=== PATIENT | female | born 1965 | race Caucasian/White ===

== ENCOUNTER 2018-02-07 19:50 | Emergency (ER) | payer OTHER ==
--- NOTE | 2018-02-07 20:09 | ER Document Report ---
ED Medical Screen (RME) - General Chief Complaint: Psych Problem Stated Complaint: PSYCH EVAL Time Seen by Provider: 02/07/18 19:58 Notes: RAPID MEDICAL EVALUATION DISCLOSURE I have seen this patient as part of a Rapid Medical Evaluation and, if applicable, placed any initially appropriate orders. The patient will be seen and fully evaluated, including a full history and physical exam, by a provider ( in Main ED or Fast Track) when a room becomes available. 53F here w who states that she has been suicidal over the past few days. She got into an argument with her son on Tuesday and later that night told the that she was going to kill herself as soon as he left the house. He then called out sick from work and did not leave the house but the next day ended up leaving because he cannot take it anymore having to deal with her. She then left the house after packing her bags and picking up "cigarettes and booze" then went to a hotel. She would not respond to his messages so he came in contact with law enforcement who spoke with her and now they are here because she has voiced to the and the "I cannot go on living like this". TRAVEL OUTSIDE OF THE [place] IN LAST 30 DAYS: No - Related Data Allergies/Adverse Reactions: iodine [Iodine] Allergy (Intermediate, Verified 09/03/15 14:08) rash Iodinated Contrast- Oral and IV Dye [IV Dye, Iodine Containing] Allergy ( Verified 09/03/15 14:08) gabapentin [From Neurontin] Adverse Reaction (Verified 05/04/16 13:20) BLACK OUT bees Allergy (Severe, Uncoded 09/03/15 14:08) Anaphylaxis Past Medical History - Past Medical History Cardiac Medical History: Reports: Hx Hypercholesterolemia, Hx Pulmonary Embolism Denies: Hx Heart Attack, Hx Hypertension Pulmonary Medical History: Denies: Hx Asthma Neurological Medical History: Reports: Hx Migraine, Hx Seizures - as infant GI Medical History: Reports: Hx Gastroesophageal Reflux Disease. Denies: Hx Hiatal Hernia Musculoskeltal Medical History: Denies Hx Arthritis Psychiatric Medical History: Reports: Hx Anxiety, Hx Depression - No prior suicide attempt, multiple suicidal threats in the past Past Surgical History: Reports: Hx Abdominal Surgery - gastric bypass, Hx Section, Hx Cholecystectomy, Hx Hysterectomy - 2004, Hx Orthopedic Surgery - carpal tunnel, Hx Tonsillectomy. Denies: Hx Mastectomy - Immunizations Hx Diphtheria, Pertussis, Tetanus Vaccination: Yes Physical Exam - Vital signs Vitals: Temp Pulse Resp BP Pulse Ox 98.9 F 110 H 20 143/58 H 100 02/07/18 19:56 02/07/18 19:56 02/07/18 19:56 02/07/18 19:56 02/07/18 19:56 Course - Vital Signs Vital signs: Temp Pulse Resp BP Pulse Ox 98.9 F 110 H 20 143/58 H 100 02/07/18 19:56 02/07/18 19:56 02/07/18 19:56 02/07/18 19:56 02/07/18 19:56
--- NOTE | 2018-02-07 20:34 | EKG REPORT ---
SEVERITY:- ABNORMAL ECG - SINUS TACHYCARDIA PROBABLE INFERIOR INFARCT, AGE INDETERMINATE : Confirmed by: Willy Cunningham MD 07-Feb-2018 20:33:31
[2018-02-07 21:20] LABS: ABSOLUTE BASOPHILS # (AUTO) 0.1 10^3/uL (0.0-0.2); ABSOLUTE LYMPHOCYTES (AUTO) 1.8 10^3/uL (0.5-4.7); ABSOLUTE MONOCYTES (AUTO) 0.7 10^3/uL (0.1-1.4); ABSOLUTE NEUT (AUTO) 6.4 10^3/uL (1.7-8.2); EOSINOPHILS % (AUTO) 0.5 % (0-6); HEMATOCRIT 43.3 % (36.0-47.0); HEMOGLOBIN 14.5 g/dL (12.0-15.5); LYMPHOCYTES % (AUTO) 19.8 % (13-45); MEAN CORPUSCULAR HEMOGLOBIN 34.8 pg (27.0-33.4); MEAN CORPUSCULAR HGB CONC 33.5 g/dL (32.0-36.0); MEAN CORPUSCULAR VOLUME 104 fl (80-97); MONOCYTES % (AUTO) 7.5 % (3-13); PLATELET COUNT 250 10^3/uL (150-450); RED BLOOD COUNT 4.17 10^6/uL (3.72-5.28); SEGMENTED NEUTROPHILS % (AUTO) 71.2 % (42-78); TOTAL CELLS COUNTED % (AUTO) 100 %; WHITE BLOOD COUNT 8.9 10^3/uL (4.0-10.5)
--- NOTE | 2018-02-07 21:26 | ER Document Report ---
ED General - General Chief Complaint: Psych Problem Stated Complaint: PSYCH EVAL Time Seen by Provider: 02/07/18 19:58 Mode of Arrival: Ambulatory Information source: Patient, Relative Notes: 53-year-old female with depression, rheumatoid arthritis presents from home voluntarily for psychiatric evaluation. Patient states that 2 days prior to arrival she and her got into an argument which led her to leave the house and stay at a hotel. She states that she was upset that he forgot their 35th wedding anniversary. is at the bedside and states that the patient repeatedly threatened to kill herself during their fight. reports that the patient texted him pictures of cigarettes and alcohol and stated "it is beginning". He took that as the patient was beginning to take pills. She has had a prior suicide attempt on August 21, 2016 where she overdosed with narcotic medication and was resuscitated by her . He reports that the patient has stated she is in a "dark place". Patient is currently denying suicidal ideation, she states that she does not recall saying any of this. did call the completions engineer's office who recommended going to the [employer] which he did. Resonate gave the patient 2 options which were, voluntarily or that she would be petition. Patient does admit to increased stress with her mother being recently ill. She is currently complaining of a headache. She denies any intentional overdose, alcohol use. Patient is currently on Prozac, Xanax and trazodone. TRAVEL OUTSIDE OF THE [place] IN LAST 30 DAYS: No - HPI Onset: Yesterday Quality of pain: Achy Severity: Mild Associated symptoms: Headache Exacerbated by: Denies Relieved by: Denies Similar symptoms previously: Yes Recently seen / treated by doctor: No - Related Data Allergies/Adverse Reactions: iodine [Iodine] Allergy (Intermediate, Verified 09/03/15 14:08) rash Iodinated Contrast- Oral and IV Dye [IV Dye, Iodine Containing] Allergy ( Verified 09/03/15 14:08) gabapentin [From Neurontin] Adverse Reaction (Verified 05/04/16 13:20) BLACK OUT bees Allergy (Severe, Uncoded 09/03/15 14:08) Anaphylaxis Past Medical History - General Information source: Patient, Relative - Social History Smoking Status: Current Every Day Smoker Frequency of alcohol use: Occasional Drug Abuse: Prescription drugs Lives with: Spouse/Significant other Family History: CAD, Other - Substance abuse Patient has suicidal ideation: Yes Patient has homicidal ideation: No - Past Medical History Cardiac Medical History: Reports: Hx Hypercholesterolemia, Hx Pulmonary Embolism Denies: Hx Heart Attack, Hx Hypertension Pulmonary Medical History: Denies: Hx Asthma Neurological Medical History: Reports: Hx Migraine, Hx Seizures - as infant Renal/ Medical History: Denies: Hx Peritoneal Dialysis GI Medical History: Reports: Hx Gastroesophageal Reflux Disease. Denies: Hx Hiatal Hernia Musculoskeltal Medical History: Denies Hx Arthritis Psychiatric Medical History: Reports: Hx Anxiety, Hx Depression - No prior suicide attempt, multiple suicidal threats in the past Past Surgical History: Reports: Hx Abdominal Surgery - gastric bypass, Hx Section, Hx Cholecystectomy, Hx Hysterectomy - 2004, Hx Orthopedic Surgery - carpal tunnel, Hx Tonsillectomy. Denies: Hx Mastectomy - Immunizations Hx Diphtheria, Pertussis, Tetanus Vaccination: Yes Review of Systems - Review of Systems Constitutional: denies: Fever, Weakness EENT: denies: Blurred vision Cardiovascular: denies: Chest pain, Lightheaded Respiratory: denies: Cough, Short of breath Gastrointestinal: denies: Abdominal pain, Nausea Genitourinary: denies: Dysuria Female Genitourinary: No symptoms reported Musculoskeletal: denies: Leg swelling Skin: denies: Rash Hematologic/Lymphatic: No symptoms reported Neurological/Psychological: Depression, Anxiety, Headaches, Suicidal ideation. denies: Hallucinations Physical Exam - Vital signs Vitals: Temp Pulse Resp BP Pulse Ox 98.9 F 110 H 20 143/58 H 100 02/07/18 19:56 02/07/18 19:56 02/07/18 19:56 02/07/18 19:56 02/07/18 19:56 Interpretation: Normal, Hypertensive, Tachycardic - Notes Notes: PHYSICAL EXAMINATION: GENERAL: Well-appearing, well-nourished and in no acute distress. HEAD: Atraumatic, normocephalic. EYES: Pupils equal round and reactive to light, extraocular movements intact, conjunctiva are normal. ENT: Nares patent, oropharynx clear without exudates. Moist mucous membranes. NECK: Normal range of motion, supple without lymphadenopathy LUNGS: Breath sounds clear to auscultation bilaterally and equal. No wheezes rales or rhonchi. HEART: Regular rate and rhythm without murmurs ABDOMEN: Soft, nontender, nondistended abdomen. No guarding, no rebound. No masses appreciated. Female : deferred Musculoskeletal: Normal range of motion, no pitting or edema. No cyanosis. NEUROLOGICAL: Cranial nerves grossly intact. Normal speech, normal gait. Normal sensory, motor exams PSYCH: Denies SI/HI. Admits to depression. SKIN: Warm, Dry, normal turgor, no rashes or lesions noted. Course - Re-evaluation Re-evalutation: Laboratory 02/07/18 02/07/18 20:40 20:40 WBC 8.9 RBC 4.17 Hgb 14.5 Hct 43.3 MCV 104 H MCH 34.8 H MCHC 33.5 RDW 14.0 Plt Count 250 Seg Neutrophils % 71.2 Lymphocytes % 19.8 Monocytes % 7.5 Eosinophils % 0.5 Basophils % 1.0 Absolute Neutrophils 6.4 Absolute Lymphocytes 1.8 Absolute Monocytes 0.7 Absolute Eosinophils 0.0 Absolute Basophils 0.1 Sodium 135.7 L Potassium 4.3 Chloride 102 Carbon Dioxide 22 Anion Gap 12 BUN 10 Creatinine 0.76 Est GFR ( Amer) > 60 Est GFR (Non-Af Amer) > 60 Glucose 101 Calcium 9.6 Total Bilirubin 0.6 Direct Bilirubin 0.4 Neonat Total Bilirubin Not Reportable Neonat Direct Bilirubin Not Reportable Neonat Indirect Bili Not Reportable AST 42 H ALT 37 Alkaline Phosphatase 100 Total Protein 7.3 Albumin 4.2 Salicylates < 1.0 L Acetaminophen < 10 L Serum Alcohol < 10 02/07/18 22:58 53-year-old female with depression, rheumatoid arthritis presents from home voluntarily for psychiatric evaluation. Patient states that 2 days prior to arrival she and her got into an argument which led her to leave the house and stay at a hotel. She states that she was upset that he forgot their 35th wedding anniversary. is at the bedside and states that the patient repeatedly threatened to kill herself during their fight. reports that the patient texted him pictures of cigarettes and alcohol and stated "it is beginning". He took that as the patient was beginning to take pills. She has had a prior suicide attempt on August 21, 2016 where she overdosed with narcotic medication and was resuscitated by her . He reports that the patient has stated she is in a "dark place". Patient is currently denying suicidal ideation, she states that she does not recall saying any of this. did call the completions engineer's office who recommended going to the bead trimmer which he did. [employer] gave the patient 2 options which were, voluntarily or that she would be petition. Patient does admit to increased stress with her mother being recently ill. She is currently complaining of a headache. She denies any intentional overdose, alcohol use. Patient is currently on Prozac, Xanax and trazodone. Upon arrival vitals reviewed and within normal limits. Patient does not appear toxic or dehydrated. She is in no acute distress. She has been cooperative and states she is willing to stay for psychiatric evaluation. Patient did receive Tylenol for her headache but states this usually does not work. She then received Imitrex and Benadryl. Patient medically cleared for psychiatric evaluation. - Vital Signs Vital signs: Temp Pulse Resp BP Pulse Ox 98.9 F 110 H 20 143/58 H 100 02/07/18 19:56 02/07/18 19:56 02/07/18 19:56 02/07/18 19:56 02/07/18 19:56 - Laboratory Result Diagrams: 02/07/18 20:40 02/07/18 20:40 Laboratory results interpreted by me: 02/07/18 02/07/18 20:40 20:40 MCV 104 H MCH 34.8 H Sodium 135.7 L AST 42 H Salicylates < 1.0 L Acetaminophen < 10 L Discharge - Discharge Referrals: BEN MONTALVO FNP [Primary Care Provider] - Follow up as needed
[2018-02-07 21:27] LABS: ALANINE AMINOTRANSFERASE 37 U/L (9-52); ALBUMIN 4.2 g/dL (3.5-5.0); ALKALINE PHOSPHATASE 100 U/L (38-126); ANION GAP 12 (5-19); ASPARTATE AMINO TRANSFERASE 42 U/L (14-36); BILIRUBIN,DIRECT 0.4 mg/dL (0.0-0.4); BILIRUBIN,TOTAL 0.6 mg/dL (0.2-1.3); BLOOD UREA NITROGEN 10 mg/dL (7-20); CALCIUM 9.6 mg/dL (8.4-10.2); CARBON DIOXIDE 22 mmol/L (22-30); CHLORIDE 102 mmol/L (98-107); GLUCOSE 101 mg/dL (75-110); POTASSIUM 4.3 mmol/L (3.6-5.0); SODIUM 135.7 mmol/L (137-145); TOTAL PROTEIN 7.3 g/dL (6.3-8.2)
[2018-02-07 21:29] LABS: ACETAMINOPHEN < 10 ug/mL (10-30); ALCOHOL < 10 mg/dL (NONE DETECTED); SALICYLATE < 1.0 mg/dL (2.0-20.0)
[2018-02-07] MEDS ORDERED: ACETAMINOPHEN 325 MG TABLET PO ONE (22:41)
[2018-02-07] MEDS ORDERED: SUMATRIPTAN SUCCINATE 25 MG TABLET PO ONE (22:55)
[2018-02-07] MEDS ORDERED: DIPHENHYDRAMINE HCL 50 MG CAPSULE PO ONE (22:55)
[2018-02-07] MEDS ORDERED: IMIPRAMINE HCL 25 MG TABLET ONE (23:10)
[2018-02-07] MEDS ORDERED: SUMATRIPTAN SUCCINATE 25 MG TABLET ONE (23:25)
[2018-02-08 05:47] LABS: APPEARANCE,URINE CLEAR; BILIRUBIN,URINE NEGATIVE (NEGATIVE); COLOR,URINE YELLOW; GLUCOSE, URINE NEGATIVE (NEGATIVE); KETONES,URINE NEGATIVE (NEGATIVE); LEUKOCYTE ESTERASE,URINE SMALL (NEGATIVE); NITRITE,URINE NEGATIVE (NEGATIVE); PROTEIN,URINE NEGATIVE (NEGATIVE); URINE SPECIFIC GRAVITY 1.005; UROBILINOGEN,URINE NEGATIVE mg/dL (<2.0)
[2018-02-08 05:57] LABS: URINE AMPHETAMINES SCREEN NEGATIVE; URINE BARBITURATES SCREEN NEGATIVE; URINE BENZODIAZEPINES SCREEN UNCONFIRMED POSITIVE; URINE COCAINE SCREEN NEGATIVE; URINE MARIJUANA (THC) SCREEN NEGATIVE; URINE METHADONE SCREEN NEGATIVE; URINE PHENCYCLIDINE SCREEN NEGATIVE
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
[2018-02-08] MEDS ORDERED: TRAMADOL HCL 50 MG TABLET PO ONE (14:31)
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
[2018-02-08] MEDS ORDERED: SUMATRIPTAN SUCCINATE INJ/PF 6 MG/0.5 ML SDV SUBCUT ONE (18:10)
[2018-02-08] MEDS ORDERED: BENZTROPINE MESYLATE 1 MG TABLET PO SCH (18:15)
[2018-02-08] MEDS ORDERED: APIXABAN 2.5 MG TABLET PO SCH (18:15)
[2018-02-08] MEDS ORDERED: OLANZAPINE 5 MG TABLET PO SCH (18:15)
[2018-02-08] MEDS ORDERED: TRAZODONE HCL 50 MG TABLET PO ONE (23:09)
[2018-02-09 08:50] VITALS: BP 114/73
[2018-02-09] MEDS ORDERED: TRAZODONE HCL 50 MG TABLET PO SCH (18:00)
--- NOTE | 2018-02-12 12:10 | PSYCHOLOGICAL NOTE ---
Psych Note - Psych Note Psych Note: Reason for consult: Consent permissions: Shweta Herron, PRIYA Pallavi, sister, 53-year-old female with depression, rheumatoid arthritis presents from home voluntarily for psychiatric evaluation. Patient states that 2 days prior to arrival she and her got into an argument which led her to leave the house and stay at a hotel. She states that she was upset that he forgot their 35th wedding anniversary. is at the bedside and states that the patient repeatedly threatened to kill herself during their fight. reports that the patient texted him pictures of cigarettes and alcohol and stated "it is beginning". He took that as the patient was beginning to take pills. Clinician conducted checking with patient to discuss transportation to [facility]. Patient confirms she would like to call her update him on her upcoming transport. She has no further questions at this time. Medication recommendations per [facility]'s contracted psychiatrist Dr. Cary MD are as follows 1. Zyprexa 5mg twice daily 2. 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 Patient was accepted to [facility] last night; transportation will occur today. Dr. Portillo was consulted and the care management this patient; attending physician is in agreement with recommendations and disposition
== END 2018-02-09 09:00 ==
LOC: ER 19:50
DX: R45.851 Suicidal ideations (principal); F32.9 Major depressive disorder, single episode, unspecified; F11.99 Opioid use, unspecified with unspecified opioid-induced disorder; F13.99 Sedative, hypnotic or anxiolytic use, unspecified with unspecified sedative, hypnotic or anxiolytic-induced disorder; F17.210 Nicotine dependence, cigarettes, uncomplicated; E78.00 Pure hypercholesterolemia, unspecified; Z86.711 Personal history of pulmonary embolism; Z98.84 Bariatric surgery status; Z90.49 Acquired absence of other specified parts of digestive tract; Z79.02 Long term (current) use of antithrombotics/antiplatelets
CPT/HCPCS: 93005; 99285; 96372; 36415; 87086; 80307 ×4; 85025; 87088; 80053; 81001; 93010; J3030; J3490

== ENCOUNTER → 2018-08-30 | Outpatient (CLI) | payer OTHER ==
--- NOTE | 2018-08-30 14:47 | RADIOLOGY REPORT (SQ) ---
EXAM DESCRIPTION: BARIUM SWALLOW ESOPHAGUS COMPLETED DATE/TIME: 08/30/2018 8:48 am REASON FOR STUDY: DYSPHAGIA R13.12 DYSPHAGIA, OROPHARYNGEAL PHASE COMPARISON: None. TECHNIQUE: Under fluoroscopic guidance, patient ingested thick and thin barium. Fluoroscopic spot im ages and routine radiographic images acquired and stored on PACS. 12 MM BARIUM TABLET GIVEN: No LIMITATIONS: None. FLUOROSCOPY TIME: 3.6 minutes 14 images saved to PACS. FINDINGS: NEUROMUSCULAR COORDINATION OF SWALLOW: Normal. No aspiration. ESOPHAGEAL MOTILITY: There is significant esophageal dysmotility, especially while in the supine posi tion. Moderate tertiary contractions of the distal esophagus are seen. ESOPHAGEAL MUCOSA: Normal mucosa without masses or ulceration. GASTRO-ESOPHAGEAL JUNCTION: Surgical changes consistent with gastric bypass. A small sliding hiatal hernia is identified. No definite reflux. NON-GI TRACT STRUCTURES: No significant finding. OTHER: No other significant finding. IMPRESSION: SIGNIFICANT ESOPHAGEAL DYSMOTILITY WITH MODERATE TERTIARY CONTRACTIONS IN DISTAL ESOPHAG US. SMALL SLIDING HIATAL HERNIA. COMMENT: NONE Quality ID 145: Final reports for procedures using fluoroscopy that document radiation exposure tara shai, or exposure time and number of fluorographic images (if radiation exposure indices are not avail able) TECHNICAL DOCUMENTATION: JOB ID: [id number] [employer]- All Rights Reserved Reading location - IP/workstation name: [email or web address] [id number]
== END ==
LOC: RAD 08:04
PROVIDERS: ATTEND Nurse Practitioner
DX: K22.4 Dyskinesia of esophagus (principal); K44.9 Diaphragmatic hernia without obstruction or gangrene; R13.12 Dysphagia, oropharyngeal phase
CPT/HCPCS: 74220

== ENCOUNTER 2019-03-08 06:40 | Day surgery (SDC) | payer OTHER ==
[~2019-03-08 06:40] MED LIST: TETRACAINE HCL 0.5% OPH SOLN 4 ML ONE
[2019-03-08] MEDS: TETRACAINE HCL 0.5% OPH SOLN 4 ML OS PRN ×4 (07:02→07:34)
[2019-03-08] MEDS: CYCLOPENTOLATE 0.2%/PHENYLEPHRINE 1% OPH SOLN 2 ML OS PRN ×3 (07:03→07:25)
[2019-03-08] MEDS: BESIFLOXACIN HCL 0.6% OPH SUSP 5 ML BOTTLE OS PRN ×3 (07:03→07:51)
[2019-03-08] MEDS: TROPICAMIDE 1% OPH SOLN 3 ML OS PRN ×3 (07:03→07:25)
[2019-03-08] MEDS ORDERED: EPINEPHRINE INJ/PF 1 MG/1 ML AMPULE ONE (07:13)
[2019-03-08] MEDS ORDERED: LIDOCAINE 1%/PHENYLEPHRINE 1.5% 1 ML VIAL ONE (07:13)
[2019-03-08] MEDS ORDERED: CHONDR SU A NA/HYALUR INTRAOC KIT (SURGICARE) ONE (07:14)
[2019-03-08] MEDS ORDERED: FENTANYL CITRATE INJ/PF 100 MCG/2 ML AMPUL ONE (07:22)
[2019-03-08] MEDS ORDERED: MIDAZOLAM 2 MG/2 ML INJ ONE (07:22)
[2019-03-08] MEDS ORDERED: KETOROLAC TROMETHAMINE 0.45% 4 DROP/0.4 ML DROPERETTE OS PRN (08:00)
--- NOTE | 2019-03-08 17:14 | [facility] OPERATIVE REPORT E ---
[facility] Operative Report NAME: MIA ONEIL AGE: 54Y DATE OF SURGERY: 03/08/2019 ROOM: PREOPERATIVE DIAGNOSIS: CATARACT, LEFT EYE. POSTOPERATIVE DIAGNOSIS: CATARACT, LEFT EYE. OPERATION: Cataract extraction with insertion of an IOL of the left eye. SURGEON: PASCUAL CHANDLER M.D. ANESTHESIA: Topical. PROCEDURE: After obtaining appropriate consent, the patient's left eye was prepped and draped in sterile fashion as well as the surgeon in a sterile manner and cataract surgery was started. First a paracentesis blade was used to make a side-port incision. Viscoelastic was used to inflate the anterior chamber. Next a 2.4 mm incision was made with a 2.4 mm blade, clear corneal temporally. A continuous capsulorrhexis was made using a cystotome and Utrata forceps. Following this hydrodissection was carried out to make the lens fully loose and mobile and it was rotated 90 degrees. Following this, a frveix-pml-jthotiv technique was used to phacoemulsify the lens with a CDE of 3.22. The remaining cortex was removed with irrigation/aspiration. Provisc was instilled into the capsular bag to inflate the bag. A SN60WF, 20.5 diopter lens was placed. The remaining viscoelastic material was removed with irrigation/aspiration. Following this, the incision was found to be watertight. Besivance was instilled into the eye and a protective shield was placed over the eye. The patient returned to the postoperative recovery in stable condition. DICTATING PHYSICIAN: PASCUAL CHANDLER M.D. [id number] PHY#: [id number] ID: [id number] JOB#: [id number] ACCT: [id number] cc:PASCUAL CHANDLER M.D. >
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
[2019-03-09] MEDS ORDERED: DORZOLAMIDE HCL 2%/TIMOLOL MALEAT 0.5% OPH SOLN 10 ML OS PRN (05:00)
== END 2019-03-08 08:41 | disposition home or self-care (01) ==
LOC: SC 06:40
PROVIDERS: ATTEND Internal Medicine
PROC: 08RK3JZ Replacement of Left Lens with Synthetic Substitute, Percutaneous Approach (ICD-10-PCS; principal; 2019-03-08 07:45)
DX: H25.12 Age-related nuclear cataract, left eye (principal); E78.00 Pure hypercholesterolemia, unspecified; K58.9 Irritable bowel syndrome, unspecified; J45.909 Unspecified asthma, uncomplicated; F32.9 Major depressive disorder, single episode, unspecified; M06.9 Rheumatoid arthritis, unspecified; Z86.711 Personal history of pulmonary embolism; Z79.01 Long term (current) use of anticoagulants; Z87.891 Personal history of nicotine dependence; Z91.041 Radiographic dye allergy status; Z91.038 Other insect allergy status; Z79.899 Other long term (current) drug therapy
CPT/HCPCS: 00142; 66984; V2632; J2250; J3490 ×2; J0171; J3010; J2370; 142

== ENCOUNTER 2019-04-05 08:32 | Day surgery (SDC) | payer OTHER ==
[~2019-04-05 08:32] MED LIST changes: +CHONDR SU A NA/HYALUR INTRAOC KIT (SURGICARE) ONE; +DORZOLAMIDE HCL 2%/TIMOLOL MALEAT 0.5% OPH SOLN 10 ML OD PRN; +EPINEPHRINE INJ/PF 1 MG/1 ML AMPULE ONE; +KETOROLAC TROMETHAMINE 0.45% 4 DROP/0.4 ML DROPERETTE OD PRN; +LIDOCAINE 1%/PHENYLEPHRINE 1.5% 1 ML VIAL ONE; +MIDAZOLAM 2 MG/2 ML INJ ONE; -TETRACAINE HCL 0.5% OPH SOLN 4 ML ONE
[2019-04-05] MEDS ORDERED: FENTANYL CITRATE INJ/PF 100 MCG/2 ML AMPUL ONE (08:53)
[2019-04-05] MEDS: TROPICAMIDE 1% OPH SOLN 3 ML OD PRN ×3 (09:55→10:15)
[2019-04-05] MEDS: BESIFLOXACIN HCL 0.6% OPH SUSP 5 ML BOTTLE OD PRN ×3 (09:55→10:37)
[2019-04-05] MEDS: CYCLOPENTOLATE 0.2%/PHENYLEPHRINE 1% OPH SOLN 2 ML OD PRN ×3 (09:55→10:15)
[2019-04-05] MEDS: TETRACAINE HCL 0.5% OPH SOLN 4 ML OD PRN ×3 (09:56→10:21)
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
--- NOTE | 2019-04-05 19:31 | [facility] OPERATIVE REPORT E ---
[facility] Operative Report NAME: MIA ONEIL AGE: 54Y DATE OF SURGERY: 04/05/2019 ROOM: PREOPERATIVE DIAGNOSIS: CATARACT, RIGHT EYE. POSTOPERATIVE DIAGNOSIS: CATARACT, RIGHT EYE. OPERATION: Cataract extraction with insertion of an IOL of the right eye. SURGEON: PASCUAL CHANDLER M.D. ANESTHESIA: Topical. PROCEDURE: After obtaining appropriate consent, the patient's right eye was prepped and draped in sterile fashion as well as the surgeon in a sterile manner and cataract surgery was started. First a paracentesis blade was used to make a side-port incision. Viscoelastic was used to inflate the anterior chamber. Next a 2.4 mm incision was made with a 2.4 mm blade, clear corneal temporally. A continuous capsulorrhexis was made using a cystotome and Utrata forceps. Following this hydrodissection was carried out to make the lens fully loose and mobile and it was rotated 90 degrees. Following this, a fqaodn-ste-gucizxg technique was used to phacoemulsify the lens with a CDE of 4.74. The remaining cortex was removed with irrigation/aspiration. Provisc was instilled into the capsular bag to inflate the bag. A SN60WF, 20.0 diopter lens was placed. The remaining viscoelastic material was removed with irrigation/aspiration. Following this, the incision was found to be watertight. Besivance was instilled into the eye and a protective shield was placed over the eye. The patient returned to the postoperative recovery in stable condition. DICTATING PHYSICIAN: PASCUAL CHANDLER M.D. [id number] PHY#: [id number] ID: [id number] JOB#: [id number] ACCT: [id number] cc:PASCUAL CHANDLER M.D. >
== END 2019-04-05 11:20 | disposition home or self-care (01) ==
LOC: SC 08:32
PROVIDERS: ATTEND Internal Medicine
DX: H25.811 Combined forms of age-related cataract, right eye (principal); Z96.1 Presence of intraocular lens; J45.20 Mild intermittent asthma, uncomplicated
CPT/HCPCS: 66984; 00142; V2632; J2250; J3490 ×2; J0171; J3010; J2370; 142

== ENCOUNTER → 2020-01-07 | Outpatient (CLI) | payer OTHER ==
[2020-01-07 14:02] LABS: A TYPE INFLUENZA AG NEGATIVE (NEGATIVE); B INFLUENZA AG NEGATIVE (NEGATIVE)
[2020-01-07 16:59] VITALS: BP 134/82
--- NOTE | 2020-01-07 16:59 | ER RDC ASSESSMENT REPORT ---
Intake - In the Last 14 days Have you traveled outside [place]?: No Have you been in close contact with someone CONFIRMED: No Worked in Healthcare?: No - Symptoms Subjective Fever(Holliday feverish): Yes Chills: Yes Muscule Aches: Yes Runny Nose: Yes Sore Throat: Yes Cough (New or worsening chronic cough): Yes Shortness of breath: Yes Nausea or Vomiting: Yes Headache: Yes Abdominal Pain: No Diarrhea(3 or more loose stools in last 24 hours): Yes - Do you have any of the following Chronic lung disease: Asthma or emphysema or COPD: Yes Chronic Lung Disease Comment: asthma, PE Cystic Fibrosis: No Diabetes: No High Blood Pressure: No Cardiovascular Disease: Yes Chronic Kidney Disease: No Chronic Liver Disease: No Chronic blood disorder like Sickle Cell Disease: No Weak immune system due to disease or medication: Yes Immune System Comment: on methotrexate for RA Neurologic condition that limits movement: No Developmental delay - Moderate to Severe: No Recent (within past 2 weeks) or current : No Morbid Obesity (>100 pounds over ideal weight): No - Objective Temperature: 98.8 F Pulse Rate: 100 Respiratory Rate: 14 Blood Pressure: 134/82 O2 Sat by Pulse Oximetry: 100 Objective: Given above, testing performed: flu A/B, strep negative; COVID sent The patient was evaluated during the global COVID 19 pandemic, and that diagnosis was suspected/considered upon their initial presentation. Their evaluation, treatment, and testing was consistent with current guidelines for patients who present with complaints or symptoms that may be related to COVID 19. If Testing Performed: Test Specimen Type Sent to Disposition: Home; Selfcare General - General Chief Complaint: Flu Symptoms Stated Complaint: Dry cough S OB with exertion fevers, chills myalgia Mode of Arrival: Ambulatory Information source: Patient - HPI Patient complains to provider of: Fever T-max 100.5 chills myalgia sore throat cough SOB with exertion Onset: Last week - 01/03/2020 Onset/Duration: Gradual, Persistent Associated symptoms: Allergy/hay fever, Body/muscle aches, Chills, Nonproductive cough, Diarrhea, Fever, Headache, Nausea, Rhinnorhea, Shortness of breath, Sore throat Exacerbated by: Denies Relieved by: Denies Similar symptoms previously: No Recently seen / treated by doctor: No - Related Data Allergies/Adverse Reactions: aspartame Allergy (Severe, Verified 03/01/19 16:14) THROAT CLOSES Iodinated Contrast Media [IV Dye, Iodine Containing] Allergy (Severe, Verified 03/01/19 16:14) Hives iodine [Iodine] Allergy (Intermediate, Verified 09/03/15 14:08) rash gabapentin [From Neurontin] Adverse Reaction (Verified 05/04/16 13:20) BLACK OUT bees Allergy (Severe, Uncoded 09/03/15 14:08) Anaphylaxis Home Medications: Cymbalta 90 mg p.o. daily, Dexilant 60 mg p.o. daily, Movantik 25 mg p.o. daily, folic acid 1 mg 6 days a week, methotrexate, Eliquis 25 mg twice daily, levaorphanor 2.5 mg TID, pravastatin 30 mg p.o. daily, Shy 180 mg p.o. daily, Seroquel 75 mg p.o. daily, trazodone 200 mg p.o. daily Xanax 0.5 mg as needed, Zanaflex as needed, Imitrex as needed, Cimzia 400 mg every 4 weeks Past Medical History - General Information source: Patient - Social History Smoking Status: Current Every Day Smoker Cigarette use (# per day): Yes - not sure Smoking Education Provided: Yes Lives with: Spouse/Significant other Family History: CAD, Other - Substance abuse - Past Medical History Cardiac Medical History: Reports: Hx Hypercholesterolemia, Hx Pulmonary Embolism Denies: Hx Heart Attack, Hx Hypertension Pulmonary Medical History: Reports: Hx Asthma - NO HOSPITALIZATIONS EENT Medical History: Reports: None Neurological Medical History: Reports: Hx Migraine, Hx Seizures - UNTIL 4YRS/NO MEDS SINCE. Denies: Hx Cerebrovascular Accident Endocrine Medical History: Reports: None Renal/ Medical History: Reports: None. Denies: Hx Peritoneal Dialysis GI Medical History: Reports: Hx Gastroesophageal Reflux Disease, Hx Hiatal Hernia. Denies: Hx Hepatitis, Hx Ulcer - HX OF IBS Musculoskeletal Medical History: Denies Hx Arthritis, Denies Hx Muscle Weakness, Reports Other - chronic pain, RA Skin Medical History: Reports None Psychiatric Medical History: Reports: Hx Anxiety, Hx Depression - No prior suicide attempt, multiple suicidal threats in the past Traumatic Medical History: Reports: None Infectious Medical History: Reports: None. Denies: Hx Hepatitis Past Surgical History: Reports: Hx Abdominal Surgery - gastric bypass, Hx Section, Hx Cholecystectomy, Hx Gastric Bypass Surgery, Hx Hysterectomy, Hx Orthopedic Surgery - carpal tunnel, Hx Tonsillectomy. Denies: Hx Mastectomy, Hx Open Heart Surgery, Hx Pacemaker Physical Exam - Vital signs Interpretation: Normal - General General appearance: Appears well In distress: None Notes: PHYSICAL EXAMINATION: GENERAL: Well-appearing and in no acute distress. HEAD: Atraumatic, normocephalic. EYES: sclera anicteric, conjunctiva are normal. ENT: nares patent. Moist mucous membranes. NECK: Normal range of motion, supple without lymphadenopathy LUNGS: CTAB and equal. No wheezes rales or rhonchi. HEART: Regular rate and rhythm without murmurs ABDOMEN: Soft, nontender, normal bowel sounds, no guarding. EXTREMITIES: Normal range of motion, no pitting edema. No cyanosis. NEUROLOGICAL: Cranial nerves grossly intact. Normal speech. PSYCH: Normal mood, normal affect. SKIN: Warm, Dry, normal turgor, no rashes or lesions noted Diagnostic Results Laboratory Results: 01/07/20 13:12 Throat Throat Culture - Pending Influenza A (Rapid) NEGATIVE (NEGATIVE) 01/07/20 13:12 Influenza B (Rapid) NEGATIVE (NEGATIVE) 01/07/20 13:12 Group A Strep Rapid NEGATIVE (NEGATIVE) 01/07/20 13:12 Patient Education/Counseling Counseling/Education: Patient presents with upper respiratory symptoms worrisome for possible Covid 19. Patient does not have emergency worrying symptoms such as difficulty breathing, shortness of breath, chest pain, pressure, confusion or cyanosis. Patient appears suitable for discharge as vital signs are stable and patient is nontoxic in appearance. Good return precautions have been discussed with patient, patient verbalized understanding and is agreeable with discharge plan of care at this time. Guidance for worsening S/SX: As a person under investigation for Covid 19, the [place] department of Health and Human Services, division of public health advises you to adhere to the following guidance until your test results are reported to you. If your test result is positive, you will receive additional information from your provider and your local health department at that time. Remain at home until you are cleared by the health provider or public health authorities. Keep a log of visitors to your home, notify any visitors to your home of your isolation status. If you plan to move to a new address or leave the county, notify the local health department in your County. Call your doctor or seek care if you have an urgent medical need. Before seeking medical care, call ahead to get instructions from the provider before arriving at the medical office clinic or hospital. Notify them that you are being tested for the virus that causes Covid 19 so that arrangements can be made, as necessary, to prevent transmission to others in the healthcare setting. Next, notify the local health department in your county. If a medical emergency arises and you need to call 911, inform the first responders that you are being tested for the virus that causes Covid 19. Next, notify the local health department in your county. RDC Discharge - Discharge Clinical Impression: COVID 19 screen Upper respiratory infection Qualifiers: URI type: unspecified viral URI Qualified Code(s): J06.9 - Acute upper r espiratory infection, unspecified Condition: Stable Disposition: Home; Selfcare
== END ==
LOC: RDC 12:57
PROVIDERS: ATTEND Registered Nurse
DX: Z20.828 Contact with and (suspected) exposure to other viral communicable diseases (principal); J06.9 Acute upper respiratory infection, unspecified
CPT/HCPCS: 87070; 87635; 87804; 87880; 99211